=== PATIENT | female | born 2000 | race Two or more races ===

== ENCOUNTER 2020-01-30 13:14 | Outpatient (CLI) | payer OTHER | END 2020-01-30 14:00 | disposition home or self-care (01) | LOC: NUCLEAR 13:14 | DX: C73 Malignant neoplasm of thyroid gland (principal) | CPT/HCPCS: 79005; A9517 ==

== ENCOUNTER 2020-02-03 15:07 | Outpatient (CLI) | payer OTHER | END 2020-02-03 16:00 | disposition home or self-care (01) | LOC: NUCLEAR 15:07 | DX: C73 Malignant neoplasm of thyroid gland (principal) ==